=== PATIENT | female | born 1990 | race Caucasian/White ===

== ENCOUNTER 2016-12-16 11:59 | Emergency (ER) | payer OTHER ==
[~2016-12-16] VITALS: Ht 180.3 cm; Wt 123.0 kg
[~2016-12-16 11:59] MED LIST: RTPRO IH; [UNRECOGNIZED DRUG - REMARK]
[2016-12-16 12:05] VITALS: Ht 180.3 cm; Wt 123.0 kg
[2016-12-16] MEDS ORDERED: morphine 10 MG INJ IM ONE (13:00)
[2016-12-16] MEDS ORDERED: KETOROLAC 60 MG INJ IM STA (13:00)
[2016-12-16] MEDS ORDERED: DEXAMETHASONE (1 MG/ML PO SYG) PO ONE (13:00)
[2016-12-16] MEDS ORDERED: HYDR-906 PO (13:03)
[2016-12-16] MEDS ORDERED: NAPR-688 PO (13:03)
[2016-12-16] MEDS ORDERED: AMOX1TAB10 PO (13:03)
--- NOTE | 2016-12-16 13:10 | ERD ---
ER Documentation Chief Complaint Date/Time DATE: 12/16/16 TIME: 13:07 Chief Complaint BIB MOTHER C/O SORE THROAT X 2 DAYS. DIFFICULTY SWALLOWING. DENIES FEVER HPI 26-year-old female presents with sore throat for 2 days getting worse. She has great difficulty swallowing she can still swallow liquids she prefers not to. She has not had a fever. Denies ear pain. Does not have a cough. ROS All systems reviewed and are negative except as per history of present illness. Medications Home Meds Active Scripts Hydrocodone/Acetaminophen ([place] 5-325 Tablet) 1 Each Tablet, 1 EACH PO Q6, #14 TAB Prov:KRISTOPHER CARTWRIGHT DO 12/16/16 Naproxen* (Naproxen*) 500 Mg Tablet, 500 MG PO BID Y for PAIN, #20 TAB Prov:KRISTOPHER CARTWRIGHT DO 12/16/16 Amoxicillin/Potassium Clav (Amox-Clav 875-125 mg Tablet) 875-125 mg Tab, 1 TAB PO BID, #20 TAB Prov:KRISTOPHER CARTWRIGHT DO 12/16/16 Reported Medications Albuterol Sulfate* (Proventil* Neb) 3 Ml Nebu, 3 ML IH 12/02/11 [Birthpill] No Conflict Check 12/02/11 Allergies Allergies: Coded Allergies: No Known Allergy (Unverified , 12/02/11) PMhx/Soc History of Surgery: Yes (ANKLE 2002) Anesthesia Reaction: No Hx Neurological Disorder: No Hx Respiratory Disorders: Yes (ASTHMA) Hx Cardiac Disorders: No Hx Psychiatric Problems: No Hx Miscellaneous Medical Probl: No Hx Alcohol Use: No Hx Substance Use: No Hx Tobacco Use: No Physical Exam Vitals Vital Signs Date Time Temp Pulse Resp B/P Pulse Ox O2 Delivery O2 Flow Rate FiO2 12/16/16 12:05 98.2 97 18 141/80 96 Physical Exam Const: [] No distress, smiling Head: Atraumatic Eyes: Normal Conjunctiva ENT: Normal External Ears, Nose and Mouth. Oropharynx with bilateral tonsillar swelling with exudate on both left and right tonsils, erythema, no unilateral swelling or uvular deviation Neck: Full range of motion..~Left tender anterior cervical lymph node approximately 1-2 cm Results 24 hrs Current Medications Medications (Trade) Dose Ordered Sig/Demario Route PRN Reason Start Time Stop Time Status Last Admin Dose Admin Dexamethasone (Decadron Intensol Liquid) 8 mg ONCE ONCE PO 12/16/16 13:00 12/16/16 13:01 Ketorolac Tromethamine (Toradol) 60 mg ONCE STAT IM 12/16/16 13:00 12/16/16 13:01 Morphine Sulfate (morphine) 4 mg ONCE ONCE IM 12/16/16 13:00 12/16/16 13:01 Procedures/MDM Presumed acute streptococcal pharyngitis. Patient was given Decadron as well as Toradol and morphine injection emergency room which led to good relief. Discharging her with Augmentin, a few [place] tabs as well as naproxen. Primary care follow-up in the next 2-3 days. Patient does not get frequent streptococcal infections and not had one that she was a child. Providing return precautions as well Departure Diagnosis: Primary Impression: Acute pharyngitis Condition: Stable Patient Instructions: Strep Throat Additional Instructions: Call your primary care doctor TOMORROW for an appointment during the next 2-3 days.See the doctor sooner or return here if your condition worsens before your appointment time. KRISTOPHER CARTWRIGHT DO Dec 16, 2016 13:10
== END 2016-12-16 13:44 | disposition home or self-care (01) ==
LOC: FTE 11:59
DX: J02.9 Acute pharyngitis, unspecified (principal); J45.909 Unspecified asthma, uncomplicated
CPT/HCPCS: 96372; J1885; J2270; Z7502; Z7610